=== PATIENT | female | born 1950 | race Caucasian/White ===

== ENCOUNTER 2017-01-30 13:20 | Emergency (ER) | payer OTHER ==
[2017-01-30 13:38] VITALS: BP 121/74; PULSE 75; RESP 18; TEMP 99; O2SAT 94
--- NOTE | 2017-01-30 13:50 | EDPHY ---
H & P Stated Complaint: c/o lower back rad to rt hip/leg pain inc. over last 3 days Time Seen by Provider: 01/30/17 13:49 HPI/ROS: CHIEF COMPLAINT: Low back pain, right-sided sciatica HISTORY OF PRESENT ILLNESS: The patient has a history of chronic low back pain. She reports that she has had increasing symptoms of right-sided sciatic pain over the past several days which were exacerbated by recent yard work. The patient denies any bowel or bladder dysfunction. The patient denies acute weakness. The patient denies prior history of back surgery. The patient has taken some ibuprofen over the past day with some improvement of her symptoms. The patient denies any history of fever or IV drug use. The patient denies any history of malignancy. The patient reports her pain is moderate in nature. It is worsened with axial rotation and palpation. The patient denies any rash, fever or additional complaints. REVIEW OF SYSTEMS: A comprehensive 10 point review of systems is otherwise negative aside from elements mentioned in the history of present illness. Source: Patient - Personal History Current Tetanus Diphtheria and Acellular Pertussis (TDAP): Yes - Medical/Surgical History Other PMH: ortho/hyst/appy - Social History Smoking Status: Former smoker - Physical Exam Exam: General Appearance: Obese female, no acute distress Eyes: Pupils equal and round no pallor or injection ENT, Mouth: Mucous membranes moist Respiratory: There are no retractions, lungs are clear to auscultation Cardiovascular: Regular rate and rhythm Gastrointestinal: Abdomen is soft and nontender, no masses, bowel sounds normal Neurological: 5/5 strength noted bilateral lower extremities, no evidence of clonus, 1+ reflexes bilaterally. Skin: Warm and dry, no rashes Musculoskeletal: Tenderness to palpation throughout the right paraspinal muscles in the lumbar spine, no midline tenderness, no sacroiliac tenderness Extremities: symmetrical, full range of motion Constitutional: Initial Vital Signs Temperature (C) 37.2 C 01/30/17 13:35 Heart Rate 75 01/30/17 13:35 Respiratory Rate 18 01/30/17 13:35 Blood Pressure 121/74 H 01/30/17 13:35 O2 Sat (%) 94 01/30/17 13:35 O2 Delivery Mode Room Air Allergies/Adverse Reactions: No Known Allergies Allergy (Unverified 08/22/09 11:37) Home Medications: Medication Instructions Recorded None 08/22/09 methylPREDNISolone [Medrol Dose 1 each PO AD #1 ea 01/30/17 Mc] oxyCODONE IR [Oxycodone Ir (*)] 5 mg PO Q6 PRN #12 tab 01/30/17 Medical Decision Making ED Course/Re-evaluation: The patient presents to the ED with an acute exacerbation of chronic low back pain with additional symptoms of right-sided sciatic pain. The patient is noted to be neurologically intact in the emergency department without obvious weakness or sensory loss. The patient has been informed of the possibility of mild lumbar radiculopathy is an etiology of her symptoms. The patient will be started on a oral steroid. She is advised to use NSAIDs and will be provided a prescription for narcotic pain medications to use as needed. The patient will be discharged home with customary aftercare instructions and return precautions. I would like the patient to follow up with our technical documentation specialist for any ongoing symptoms. She is advised to return to the ED for any acute weakness, numbness, bowel or bladder dysfunction, fever or other concerns. Differential Diagnosis: Differential diagnosis considered includes sciatica, sacroiliitis, lumbar disc herniation, cauda equina syndrome, zoster Departure - Departure Disposition: Home, Routine, Self-Care Clinical Impression: Sciatica, Lumbar pain Condition: Good Instructions: Sciatica (ED) Additional Instructions: 1. Take Ibuprofen or Motrin 600 mg by mouth three times a day. 2. Please take steroids as directed for pain. 3. Oxycodone as needed for severe pain. 4. Please take all these medications on a full stomach. 5. Please return to the ED immediately for any numbness, weakness, inability to walk, fever or other concerns. 6. Please follow up with a spinal specialist you have been referred to for any unimproved symptoms. Referrals: Feroz Goodwin MD [Medical Doctor] - As per Instructions Nikko Nur DO [Medical Doctor] - As per Instructions Prescriptions: methylPREDNISolone [Medrol Dose Mc] 1 each PO AD #1 ea oxyCODONE IR [Oxycodone Ir (*)] 5 mg PO Q6 PRN #12 tab PRN Reason: for pain
== END 2017-01-30 14:23 | disposition home or self-care (01) ==
LOC: CED 13:20
DX: M54.41 Lumbago with sciatica, right side (principal); Z87.891 Personal history of nicotine dependence

== ENCOUNTER → 2017-05-17 | Outpatient (CLI) | payer OTHER | LOC: CIMAGING 11:40 | PROVIDERS: ATTEND Family Medicine | DX: Z01.811 Encounter for preprocedural respiratory examination (principal); J84.10 Pulmonary fibrosis, unspecified; F17.200 Nicotine dependence, unspecified, uncomplicated | CPT/HCPCS: 71020-PO ==

== ENCOUNTER 2017-05-25 06:10 | Inpatient (IN) | payer OTHER ==
[2017-05-25] MEDS ORDERED: ACETAMINOPHEN 500 MG TAB PO ONE (06:17)
[2017-05-25] MEDS ORDERED: ceFAZolin 2 GM/DEXTROSE 100 ML IV ONE (06:17)
[2017-05-25] MEDS ORDERED: GABAPENTIN 300 MG CAP PO ONE (06:17)
[2017-05-25] MEDS ORDERED: morphINE PF 5 MG/10 ML INJ IT ONE (06:17)
[2017-05-25] MEDS ORDERED: morphINE SR 15 MG TAB PO ONE (06:17)
[2017-05-25] MEDS ORDERED: BUPIVACAINE 0.25% 30 ML SDV ONE (06:43)
[2017-05-25] MEDS ORDERED: CHLORHEXIDINE GLUC HIBICLENS 118 ML BTL TP ONE (06:43)
[2017-05-25] MEDS ORDERED: BACITRACIN 50,000 UNITS/10 ML SYR IRR ONE (06:44)
[2017-05-25] MEDS ORDERED: CITRATE DEXTROSE SOLN 500 ML BAG ONE (06:44)
[2017-05-25] MEDS ORDERED: LR 1,000 ML IV ONE (06:52)
--- NOTE | 2017-05-25 06:54 | PDHPUP ---
History & Physical Update H&P update statement: This history and physical update is based on an assessment of the patient which was completed after admission or registration (within 24 hours), but prior to the surgery/procedure. H&P update: H&P reviewed & patient examined, no change in patient's condition since H&P completed (Consents have been signed and site marked. All questions answered.)
[2017-05-25] MEDS ORDERED: THROMBIN (BOVINE) 20,000 UNIT VIAL TP ONE (06:59)
[2017-05-25] MEDS ORDERED: PROPOFOL/EMULSION 500 MG/50 ML BOTTLE IV ONE ×2 (07:09→10:52)
[2017-05-25] MEDS ORDERED: REMIFENTANIL HCL 1 MG VIAL ONE ×2 (07:09→10:52)
[2017-05-25] MEDS ORDERED: PROPOFOL 200 MG/20 ML VIAL ONE (07:10)
[2017-05-25] MEDS ORDERED: fentaNYL 100 MCG/2 ML INJ ONE ×2 (07:10→13:19)
[2017-05-25] MEDS ORDERED: SUCCINYLCHOLINE CHLORIDE*ANESTHESIA ONLY*200 MG/10 ML SYR IVP ONE (07:15)
[2017-05-25] MEDS ORDERED: LIDOCAINE 2% 5 ML SDV ONE (07:16)
[2017-05-25] MEDS ORDERED: MIDAZOLAM 2 MG/2 ML VIAL ONE (07:33)
[2017-05-25] MEDS ORDERED: MIDAZOLAM 2 MG/2 ML VIAL IVP ONE (07:33)
--- NOTE | 2017-05-25 07:33 | PDANEPAE ---
ANE History of Present Illness 67 year old female for L5-S1 laminectomy with TLIF. ANE Past Medical History - Cardiovascular History Hx Hypertension: No Hx Arrhythmias: No Hx Chest Pain: No Hx Coronary Artery / Peripheral Vascular Disease: No Hx CHF / Valvular Disease: No Hx Palpitations: No - Pulmonary History Hx COPD: No Hx Asthma/Reactive Airway Disease: No Hx Recent Upper Respiratory Infection: No Hx Oxygen in Use at Home: No Hx Sleep Apnea: No Sleep Apnea Screening Result - Last Documented: Negative - Neurologic History Hx Cerebrovascular Accident: No Hx Seizures: No Hx Dementia: No Neurologic History Comment: current sciatic pain to right leg and occassionally goes to left leg - Endocrine History Hx Diabetes: No Hypothyroid: No Hyperthyroid: No Obesity: yes, moderate - Renal History Hx Renal Disorders: No Renal History Comment: hx of bladder infections none in 10 yrs - Liver History Hx Hepatic Disorders: No - Neurological & Psychiatric Hx Hx Neurological and Psychiatric Disorders: No Neurological / Psychiatric History Comment: anxious about surgery - Cancer History Hx Cancer: No - Congenital Disorder History Hx Congenital Disorders: No - GI History GERD: no Hx Gastrointestinal Disorders: Yes Gastrointestinal History Comment: constipation - Other Health History Other Health History: wears glasses. missing teeth, loose tooth in front - Chronic Pain History Chronic Pain: Yes (back pain) - Surgical History Prior Surgeries: emergent appy 1993 ANE Review of Systems Review of systems is: negative - Exercise capacity Exercise capacity: <4 METS METS (RN): 3 METS - Systems Neurological: Reports: paresthesia, weakness (sciatica down right leg. Also reporting numbness in right little finger) ANE Patient History - Allergies Allergies/Adverse Reactions: No Known Allergies Allergy (Verified 05/12/17 12:26) - Home Medications Home Medications: Hydrocodone/Acetaminophen [[place] 5/325 (*)] 1 - 2 tab PO Q4H PRN 05/11/17 [Last Taken 05/24/17 22:00] - NPO status NPO Status: no food or drink >8 hours NPO Since - Liquids (Date): 05/24/17 NPO Since - Liquids (Time): 23:30 NPO Since - Solids (Date): 05/24/17 NPO Since - Solids (Time): 19:00 - Anes Hx Anes Hx: no prior problems - Smoking Hx Smoking Status: Light smoker Marijuana use: No - Alcohol Use Alcohol Use: Rarely - Family Anes Hx Family Anes Hx: none Family Hx Anesthesia Complications: none ANE Labs/Vital Signs - Vital Signs Vital Signs: reviewed preoperatively; see RN documention for details Blood Pressure: 139/80 Heart Rate: 60 Respiratory Rate: 13 O2 Sat (%): 92 Height: 167.64 cm Weight: 104.326 kg ANE Physical Exam - Airway Neck exam: FROM Mallampati Score: Class 3 Mouth exam: poor dentition Mouth image: 1 - Missing or very loose 2 - Missing or very loose;. Teeth in very poor condition. - Pulmonary Pulmonary: no respiratory distress - Cardiovascular Cardiovascular: regular rate and rhythym - ASA Status ASA Status: II ANE Anesthesia Plan Anesthesia Plan: general endotracheal anesthesia Total IV Anesthesia: Yes
[2017-05-25] MEDS ORDERED: ONDANSETRON 4 MG/2 ML VIAL ONE (08:01)
[2017-05-25] MEDS ORDERED: DEXAMETHASONE 4 MG/ML VIAL ONE (08:01)
[2017-05-25] MEDS ORDERED: PHENYLEPHRINE HCL 100 MCG/ML SYR ONE ×2 (09:58→10:47)
[2017-05-25] MEDS ORDERED: epHEDrine SULFATE 10 MG/ML SYR ONE ×2 (10:25→10:56)
[2017-05-25] MEDS ORDERED: NALOXONE HCL 0.4 MG/ML INJ IVP PRN (11:05)
[2017-05-25] MEDS ORDERED: LR 500 ML IV PRN (11:05)
[2017-05-25] MEDS ORDERED: HYDROmorphONE/DILAUDID 1 MG/ML SYR IVP PRN (11:05)
[2017-05-25] MEDS ORDERED: OXYCODONE/APAP 5/325 TAB PO PRN (11:05)
[2017-05-25] MEDS ORDERED: ONDANSETRON 4 MG/2 ML VIAL IVP PRN ×2 (11:05→12:59)
[2017-05-25] MEDS ORDERED: HYDROmorphONE/DILAUDID 2 MG/ML INJ ONE (11:18)
[2017-05-25] MEDS ORDERED: PHENYLEPHRINE 10 MG/ML SDV ONE (11:52)
[2017-05-25] MEDS ORDERED: SUGAMMADEX SODIUM 200 MG/2 ML VIAL IVP ONE (12:27)
[2017-05-25] MEDS ORDERED: diphenhydrAMINE 25 MG CAP PO PRN (12:59)
[2017-05-25] MEDS ORDERED: MAGNESIUM HYDROXIDE 30 ML UDCUP PO PRN (12:59)
[2017-05-25] MEDS ORDERED: ONDANSETRON DISINTEGRATING 4 MG TAB PO PRN (12:59)
[2017-05-25] MEDS ORDERED: POLYETHYLENE GLYCOL 3350 17 GM PKT PO PRN (12:59)
[2017-05-25] MEDS ORDERED: LACTULOSE 20 GM/30 ML UDCUP PO PRN (12:59)
[2017-05-25] MEDS ORDERED: BISACODYL 10 MG SUPP PR PRN (12:59)
[2017-05-25] MEDS ORDERED: NS 1,000 ML IV SCH (13:00)
--- NOTE | 2017-05-25 13:05 | POSTOPPROG ---
Post Op Note Date of Operation: 05/25/17 Surgeon: Yokasta Jacobs Watermaster: Eliot Jacobs PA-C Anesthesiologist: Konstantin Anesthesia: GET(General Endotracheal) Pre-op Diagnosis: lumbar stenosis, spondylolisthesis Post-op Diagnosis: same Indication: leg pain and weakness Procedure: L5-S1 laminectomy with TLIF and posterior fusion, synovial cyst resection Findings: Nerve compression Inf/Abcess present in the surg proc area at time of surgery?: No Depth: Organ Space EBL: 100-500 Complications: none Drains: Ebrny Canales Specimen(s): none PA Addendum - Addendum .: POST OP PACU NOTE: S: Pt in bed in PACU, states right leg is still somewhat numb and painful O: AAOx3 NAD VSS MAEx4 Motor 5/5 BUE/BLE with exception of L quad 4+/5 +LT JPx1 Wolfe in A: 67 yo F s/p L5S1 laminectomy, TLIF, and posterior fusion P: PT/OT Brace when OOB Post op xrays pending TEDS, SCDs, lovenox POD#1 Pain management Call NS with any issues
--- NOTE | 2017-05-25 13:14 | POSTANESTH ---
Post Anesthetic Evaluation Cardiovascular Status: Normal, Stable, Similar to Pre-Op Cond Respiratory Status: Normal, Stable, Similar to Pre-op Cond. Level of Consciousness/Mental Status: Can Participate in Eval, Mildly Sleepy, Arousable Pain Control: Adequate, Prn Tx Ordered Nausea/Vomiting Control: Adequate, Prn Tx Ordered Complications Possibly Related to Anesthesia: None Noted
[2017-05-25] MEDS: fentaNYL 100 MCG/2 ML INJ IVP PRN ×2 (13:22→13:33)
--- NOTE | 2017-05-25 14:21 | GOP ---
[f rep st] OPERATIVE REPORT DATE OF OPERATION: 05/25/2017 SURGEON: Wolfgang Musa MD KIT ASSEMBLER: Yokasta Jacobs PA-C. ANESTHESIA: General. PREOPERATIVE DIAGNOSIS: 1. L5-S1 grade 1 spondylolisthesis with bilateral pars defects. 2. Large right-sided herniated nucleus pulposus with central stenosis. 3. Left-sided synovial cyst, L5-S1. 4. Treatment refractory to nonoperative intervention. 5. Lower extremity weakness. 6. Low back pain. POSTOPERATIVE DIAGNOSIS: 1. L5-S1 grade 1 spondylolisthesis with bilateral pars defects. 2. Large right-sided herniated nucleus pulposus with central stenosis. 3. Left-sided synovial cyst, L5-S1. 4. Treatment refractory to nonoperative intervention. 5. Lower extremity weakness. 6. Low back pain. PROCEDURE PERFORMED: 1. Posterior arthrodesis with approach to L5-S1. 2. Rondon laminectomy with bilateral medial facetectomies and foraminotomies, L5- S1. 3. Synovial cyst resection, left-sided L5-S1. 4. Right-sided L5-S1 diskectomy. 5. Posterolateral fusion with bilateral pedicle screw placement, at L5 and S1 from the [employer]Soda 4.75 Solera system. 6. Right-sided L5-S1 transforaminal lumbar interbody fusion with a 7 x 23 mm titanium polyetheretherketone elevate cage filled with morselized autograft and allograft. 7. Posterolateral fusion on the left between L5 and S1 with morselized autograft and allograft. 8. Injection of preservative-free intrathecal narcotics. 9. Use of intraoperative 3D Stealth navigation. 10. Use of intraoperative fluoroscopy, less than 1 hour physician time. 11. Use of neuromonitoring. 12. Use of operating microscope. FINDINGS: per imaging SPECIMENS: None. ESTIMATED BLOOD LOSS: 150 mL. INDICATIONS: The patient is a 67-year-old woman, who presented to my office with acute onset of low back pain with right lower extremity radiculopathy. The patient had evidence of a large disk herniation at L5-S1. Patient failed nonoperative intervention. She also has a pars defect with a spondylolisthesis , L5-S1. After failing nonoperative interventions, after discussion of risks, benefits, and treatment alternatives, we decided to proceed forth with surgery as described above. DESCRIPTION OF PROCEDURE: Patient was brought to the operating theater, and underwent general endotracheal anesthesia without complications. She had knee- high LIMA hose and the appropriate lines placed by Anesthesia. She was then flipped prone onto the Berny table. All bony processes inspected and padded. The lower lumbar region was prepped and draped in usual sterile surgical fashion. After a time-out was completed per protocol, the patient received antibiotics within 1 hour of incision. Using lateral fluoroscopy and a spinal needle, we picked our entry point to the L5-S1 levels. This was marked in the midline and the incision then infiltrated with Marcaine with epinephrine. The incision was taken with the use of scalpel blade, and using monopolar taken down the midline to the lumbodorsal fascia. A subperiosteal dissection carried out to the transverse process of L5 and S1. Care was taken to preserve the L4-5 facet joint. The dissection was somewhat tedious secondary to the patient's body habitus. Deep retractors were placed to maintain our exposure. We attached the 3D Stealth navigation clamp to the spinous process of L4 and completed a 3D Stealth navigation spin. Using 3D Stealth navigation, we placed the line pilot holes for the bilateral pedicle screws into L5 and S1. All holes were manually palpated with no evidence of any cortical breaches. We then tapped and placed 6.5 x 50 mm screws bilaterally at L5, and 6.5 x 40 mm screws bilaterally at S1 from the [employer]onic 4.75 Solera system. Another 3D Stealth navigation spin demonstrated good placement of the hardware. At this point, the microscope was brought into the field to assist with microscopic dissection and to maintain illumination and magnification. Using a combination of the bur tip on the drill, Kerrison punches, and Leksell rongeur, we completed a decompressive Rondon laminectomy at L5-S1. We also resected the synovial cyst on the left side at the L5-S1 facet joint. We moved down and distracted the L5-S1 interspace, and resected the remainder of the pars on the right side. We completed a right-sided L5-S1 diskectomy, and prepared the cartilaginous endplates. We measured the interbody space and placed a 7 x 23 mm titanium PEEK elevate cage filled with morselized autograft and allograft anteriorly toward the midline. We packed additional morcellized autograft in the disk space for the interbody fusion and let down the distraction. At this point, we moved down along the medial aspect of the pedicle on the right side, and retracted the thecal sac medially, at which point, we pulled out very large free fragments of disk material until everything felt well decompressed on manual palpation. We decorticated the bone on the left side between L5 and S1. We placed 2 lordotic rods into the heads of the screws between L5 and S1, and secured them down with cap screws which were tightened per diamond sizer's setting. We irrigated the wound copiously with bacitracin irrigation and placed morselized autograft and allograft on the left side between L5-S1 for the postoperative fusion. We injected preservative-free intrathecal narcotics, and left a drain in the subfascial space. The wound was then closed in multiple layers using Vicryl sutures for deep layers and Dermabond for the skin. The patient's wounds were dressed sterilely. She was flipped supine onto the transfer cart. She was awakened, extubated, taken to the recovery room in stable condition. There were no complications, and no noted changes on neuromonitoring throughout the procedure. COMPLICATIONS: None. /[id number]/MODL MTDD
[2017-05-25] MEDS: ACETAMINOPHEN 500 MG TAB PO SCH ×2 (16:31→22:28)
[2017-05-25] MEDS: ceFAZolin 2 GM/DEXTROSE 100 ML IV SCH ×2 (17:39→22:31)
[2017-05-25] MEDS: POLYETHYLENE GLYCOL 3350 17 GM PKT PO SCH ×2 (18:49→22:29)
[2017-05-25] MEDS: SENNOSIDES/DOCUSATE SODIUM TAB PO SCH (22:28)
[2017-05-25] MEDS: FAMOTIDINE 20 MG TAB PO SCH (22:29)
[2017-05-26] MEDS: HYDROCODONE/APAP 5/325 TAB PO PRN ×5 (03:42→23:19)
[2017-05-26] MEDS: METHOCARBAMOL 750 MG TAB PO PRN ×3 (06:03→23:24)
[2017-05-26] MEDS: ACETAMINOPHEN 500 MG TAB PO SCH ×2 (06:03→14:25)
[2017-05-26] MEDS: ENOXAPARIN 40 MG/0.4 ML SYR SC SCH (07:43)
[2017-05-26] MEDS: SENNOSIDES/DOCUSATE SODIUM TAB PO SCH ×2 (07:47→21:11)
[2017-05-26] MEDS: POLYETHYLENE GLYCOL 3350 17 GM PKT PO SCH ×3 (07:48→21:11)
[2017-05-26] MEDS: FAMOTIDINE 20 MG TAB PO SCH ×2 (07:48→21:12)
--- NOTE | 2017-05-26 10:27 | NEUSURGPN ---
Assessment/Plan: A: 67 yo F s/p L5S1 laminectomy, TLIF, and posterior fusion POD#1 P: PT/OT Brace when OOB Post op xrays pending TEDS, SCDs, lovenox POD#1 Pain management - continue current regimen SHIVA drain productive - leave in place Call NS with any issues D/w Dr Musa Will need SNF placement post op Subjective: Pt resting in bed, states post op pain is well managed. Eager to get up and OOB. Objective: AAOx3 NAD VSS MAEx4 Motor 5/5 BLE with exception of L Quad 5-/5 +LT SHIVA drain with serosanguineous dc in bulb Urinary Catheter in Place: Yes Urinary Catheter Indication: Other (Use Comment) (to be removed today) - Physician Discussed Patient with Dr.: Musa Neurosurgery Physical Exam - Vitals, I&O, Labs I and O 05/25/17 05/26/17 05/27/17 05:59 05:59 05:59 Intake Total 1410 Output Total 2120 80 Balance -710 -80 Weight 104.326 kg Intake: Oral (ml) 310 IV Intake (ml) 1100 Output: Urine (ml) 1675 Catheter 1675 Estimated Blood Loss (ml) 150 SHIVA Drain Output (ml) 295 80 Back 295 80 Other: Intake Quantity Yes Sufficient Number of Voids Catheter 1 Vital Signs Temp Pulse Resp BP Pulse Ox 36.9 C 58 L 16 107/54 L 94 05/26/17 08:00 05/26/17 08:00 05/26/17 08:00 05/26/17 08:00 05/26/17 08:00 ICD10 Worksheet Patient Problems: Problems Problem Status Onset Spondylolisthesis, lumbar region Acute - ICD10 Problem Qualifiers (1) Spondylolisthesis, lumbar region
[2017-05-26] MEDS ORDERED: ACETAMINOPHEN 325 MG TAB PO PRN (14:09)
--- NOTE | 2017-05-26 15:57 | ASMTCASEMG ---
Discharge Plan Comments Coordination Status Comments Notes: PT/OT rec SNF. Pt [facility] is pursuing [employer] ins auth for weekend d/c. If no auth, pt will be here through wknd; this was communicated to pt. Date Signed: 05/26/2017 03:57 PM Electronically Signed By:Milla Evangelista
[2017-05-27] MEDS: ENOXAPARIN 40 MG/0.4 ML SYR SC SCH (07:56)
[2017-05-27] MEDS: SENNOSIDES/DOCUSATE SODIUM TAB PO SCH ×2 (07:57→21:37)
[2017-05-27] MEDS: METHOCARBAMOL 750 MG TAB PO PRN ×2 (07:57→12:44)
[2017-05-27] MEDS: FAMOTIDINE 20 MG TAB PO SCH ×2 (07:57→21:38)
[2017-05-27] MEDS: POLYETHYLENE GLYCOL 3350 17 GM PKT PO SCH ×3 (07:58→21:38)
[2017-05-27] MEDS: HYDROCODONE/APAP 5/325 TAB PO PRN ×3 (08:03→21:37)
--- NOTE | 2017-05-27 11:20 | ASMTCMCOM ---
CM Note CM Note Notes: [facility] Pt can d/c over the wknd if medically stable. Date Signed: 05/27/2017 11:19 AM Electronically Signed By:Milla Evangelista
--- NOTE | 2017-05-27 12:50 | SOAPPROG ---
SOIRIS Progress Note Assessment/Plan: Assessment: Doing well postop. 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 I think she needs to stay in the hospital another day or so to ensure that she recovers well. Plan: 05/27/17 12:49 Subjective: She is doing great and really has no pain. Objective: Vital Signs Temp Pulse Resp BP Pulse Ox 36.9 C 58 L 18 131/71 H 95 05/27/17 07:42 05/27/17 07:42 05/27/17 07:42 05/27/17 07:42 05/27/17 07:42 05/26/17 05/27/17 05/28/17 05:59 05:59 05:59 Intake Total 1410 1100 Output Total 2120 1290 700 Balance -710 -190 -700 MAEW. DRESSING LOOKS GOOD ICD10 Worksheet Patient Problems: Problems Problem Status Onset Spondylolisthesis, lumbar region Acute
[2017-05-28] MEDS: METHOCARBAMOL 750 MG TAB PO PRN ×3 (00:44→18:39)
[2017-05-28] MEDS: HYDROCODONE/APAP 5/325 TAB PO PRN ×2 (05:23→15:07)
[2017-05-28] MEDS: FAMOTIDINE 20 MG TAB PO SCH ×2 (08:04→21:43)
[2017-05-28] MEDS: SENNOSIDES/DOCUSATE SODIUM TAB PO SCH ×2 (08:04→21:43)
[2017-05-28] MEDS: POLYETHYLENE GLYCOL 3350 17 GM PKT PO SCH ×3 (08:05→21:43)
[2017-05-28] MEDS: ENOXAPARIN 40 MG/0.4 ML SYR SC SCH (08:05)
--- NOTE | 2017-05-28 12:04 | SOAPPROG ---
SOAP Progress Note Assessment/Plan: Assessment: Doing well postop. 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 I think she needs to stay in the hospital another day or so to ensure that she recovers well. drain removed today. xrays look great. Plan: 05/27/17 12:49 05/28/17 12:04 Subjective: Doing relatively well. Has some right leg pain today but in great spirits. Objective: Vital Signs Temp Pulse Resp BP Pulse Ox 37.0 C 54 L 16 114/72 93 05/28/17 08:00 05/28/17 08:00 05/28/17 08:00 05/28/17 08:00 05/28/17 08:00 05/27/17 05/28/17 05/29/17 05:59 05:59 05:59 Intake Total 1100 960 Output Total 1290 2250 20 Balance -190 -1290 -20 maew ICD10 Worksheet Patient Problems: Problems Problem Status Onset Spondylolisthesis, lumbar region Acute
--- NOTE | 2017-05-28 16:39 | ASMTCMCOM ---
CM Note CM Note Notes: Pt will arcenio DC to [facility] tomorrow. Updated [facility]. Date Signed: 05/28/2017 04:38 PM Electronically Signed By:Amebr Lind
[2017-05-29] MEDS: HYDROCODONE/APAP 5/325 TAB PO PRN ×4 (00:08→21:12)
[2017-05-29] MEDS: METHOCARBAMOL 750 MG TAB PO PRN ×4 (00:09→21:17)
[2017-05-29] MEDS: SENNOSIDES/DOCUSATE SODIUM TAB PO SCH ×2 (08:23→21:13)
[2017-05-29] MEDS: ENOXAPARIN 40 MG/0.4 ML SYR SC SCH (08:23)
[2017-05-29] MEDS: FAMOTIDINE 20 MG TAB PO SCH ×2 (08:23→21:13)
[2017-05-29] MEDS: POLYETHYLENE GLYCOL 3350 17 GM PKT PO SCH ×3 (08:24→21:13)
--- NOTE | 2017-05-29 10:26 | SOAPPROG ---
WINNIE Progress Note Assessment/Plan: Assessment: Doing well postop. 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 I think she needs to stay in the hospital another day or so to ensure that she recovers well. She will continue working with therapies today. Will consider discharge tomorrow. She may need a short stay in a SNF or rehab facility. Plan: 05/27/17 12:49 05/28/17 12:04 05/29/17 10:25 Subjective: Sitting in a chair. Generally good spirits but some pain down the back of the right leg last night. Objective: Vital Signs Temp Pulse Resp BP Pulse Ox 36.7 C 66 18 116/67 90 L 05/29/17 08:00 05/29/17 08:00 05/29/17 08:00 05/29/17 08:00 05/29/17 08:00 05/28/17 05/29/17 05/30/17 05:59 05:59 05:59 Intake Total 960 450 Output Total 2250 371 Balance -1290 79 maew ICD10 Worksheet Patient Problems: Problems Problem Status Onset Spondylolisthesis, lumbar region Acute
--- NOTE | 2017-05-29 16:38 | ASMTCMCOM ---
CM Note CM Note Notes: Neurosurgery reporting that patient discharge will be Monday. Date Signed: 05/29/2017 04:38 PM Electronically Signed By:Ashlee Daniel
[2017-05-30 01:14] VITALS: RESP 16
[2017-05-30] MEDS: HYDROCODONE/APAP 5/325 TAB PO PRN ×4 (03:09→16:50)
[2017-05-30] MEDS: METHOCARBAMOL 750 MG TAB PO PRN ×3 (03:10→16:51)
[2017-05-30] MEDS: ENOXAPARIN 40 MG/0.4 ML SYR SC SCH (07:37)
[2017-05-30] MEDS: FAMOTIDINE 20 MG TAB PO SCH (07:38)
[2017-05-30] MEDS: SENNOSIDES/DOCUSATE SODIUM TAB PO SCH (07:39)
[2017-05-30] MEDS: POLYETHYLENE GLYCOL 3350 17 GM PKT PO SCH ×2 (07:39→16:08)
[2017-05-30 08:27] VITALS: BP 95/64; PULSE 54; TEMP 97.7; O2SAT 93
--- NOTE | 2017-05-30 08:43 | NEUSURGPN ---
Assessment/Plan: A: 67 yo F s/p L5S1 laminectomy, TLIF, and posterior fusion P: PT/OT Brace when OOB Post op xrays with intact hardware TEDS, SCDs, lovenox Pain management - will start gabapentin today Call NS with any issues D/w Dr Musa SNF placement for later today Subjective: right leg nerve pain when standing. left leg improved. Objective: NAD A&Ox3 MAex4 RLE 4-/5 in IL/ham/quads (limited to pain) LLE 5-/5 throughout. Incision c/d/i - Physician Discussed Patient with : [facility] Neurosurgery Physical Exam - Vitals, I&O, Labs I and O 05/29/17 05/30/17 05/31/17 05:59 05:59 05:59 Intake Total 450 Output Total 371 1250 Balance 79 -1250 Intake: Oral (ml) 450 Output: Urine (ml) 351 1250 Bedside Commode 350 1250 Incontinence 1 SHIVA Drain Output (ml) 20 Back 20 Other: Intake Quantity Yes Sufficient Number of Voids Bedside Commode 1 1 Incontinence 2 Number of Stools Bedside Commode 1 Incontinence 1 Vital Signs Temp Pulse Resp BP Pulse Ox 36.5 C 54 L 16 95/64 L 93 05/30/17 08:00 05/30/17 08:00 05/30/17 08:00 05/30/17 08:00 05/30/17 08:00 ICD10 Worksheet Patient Problems: Problems Problem Status Onset Spondylolisthesis, lumbar region Acute
[2017-05-30] MEDS ORDERED: GABAPENTIN 300 MG CAP PO SCH (09:00)
[2017-05-30] MEDS ORDERED: GABAPENTIN 100 MG CAP PO SCH (09:00)
--- NOTE | 2017-05-30 09:36 | PDIAF ---
- Diagnosis Code Status: Full Code - Medication Management Discharge Medications: Medications to Continue on Transfer Hydrocodone/Acetaminophen [[place] 5/325 (*)] 1 - 2 tab PO Q4H PRN 05/11/17 [Last Taken 05/24/17 22:00] Acetaminophen [Tylenol 325mg (*)] 650 mg PO Q6H PRN #0 tab 05/30/17 [Last Taken Unknown] Gabapentin [Neurontin 100 MG (*)] 200 mg PO BID #0 cap 05/30/17 [Last Taken Unknown] Methocarbamol [Robaxin 750 mg (*)] 750 mg PO QID PRN #0 tab 05/30/17 [Last Taken Unknown] Sennosides/Docusate Sodium [Senokot-S] 1 - 2 tab PO BID #0 tab 05/30/17 [Last Taken Unknown] Discharge Medications: Refer to the Discharge Home Medication list for PRN reason. - Orders Services needed: Certified Tobacco Sampler, Physical Therapy, Occupational Therapy Diet Recommendation: no restrictions on diet Diet Texture: Regular Texture Diet Additional: No NSAIDs for 6 months. Keep incision covered with dry gauze. Okay to let water rinse over incision in shower. Do not soak. Okay to titrate up gabapentin (Started on 05/30 at 200mg bid, would continue for 2 additional days at this dose then okay to increase to 200mg tid). Ice to incision bid, 20 minutes each session. Wear LSO brace when OOB. Follow up with Dr. Musa's office in 2 weeks - Follow Up Care Current Providers and Referrals: Bang Mahan MD [Primary Care Provider] -
--- NOTE | 2017-05-31 09:20 | ASMTCMCOM ---
CM Note CM Note Notes: Pt medically stable for d/c to [facility]. Date Signed: 05/31/2017 09:20 AM Electronically Signed By:Milla Evangelista
== END 2017-05-30 17:04 | DRG 460 ==
LOC: F3N 06:10
PROVIDERS: ADMIT Neurological Surgery; ATTEND Neurological Surgery
DX: M43.17 Spondylolisthesis, lumbosacral region (principal); M51.27 Other intervertebral disc displacement, lumbosacral region; M48.07 Spinal stenosis, lumbosacral region; M71.38 Other bursal cyst, other site
CPT/HCPCS: 97116-GP; 97161-GP; 97165-GO; 97530-GO; 97530-GP; 97535-GO; C1713; G8978-GP-CK; G8979-GP-CI; G8987-GO-CK; G8988-GO-CI; J0171; J0330; J0690; J1100; J1170; J1650; J2250; J2274; J2370; J2405; J2704; J3010; J7060

== ENCOUNTER 2018-01-31 09:15 | Emergency (ER) | payer OTHER ==
--- NOTE | 2018-01-31 09:38 | EDPHY ---
H & P Time Seen by Provider: 01/31/18 09:27 HPI/ROS: HPI Left ankle injury. 68-year-old female by private vehicle. This patient reports that she was walking down her stairs backwards about 2 weeks ago. She misstepped on the last step and twisted her left ankle. She presents to the emergency department with complaint of left ankle pain. Worse with weight-bearing. She has been using a walker to ambulate. She denies any other injury or complaint related to this event. ROS: Constitutional: No fever, no chills. No weakness. Musculoskeletal: Chronic back pain. No neck pain. As above. Denies other extremity pain. Skin: No rashes. No lacerations or abrasions. Neurological: No headache. No focal weakness or altered sensation. Past medical history: Sciatica, orthopedic, appendectomy, hysterectomy. Social history: Former smoker. Here by herself. Physical Exam: General Appearance: Alert, no distress. This patient is responding to questions appropriately and in full sentences. This patient appears well- hydrated and well-nourished. Eyes: Pupils equal and round no pallor or injection. No lid edema, erythema or injection. Left ankle and left lower extremity exam: Vague tenderness around the medial malleolus of the left ankle. No bony step-off, deformity, ecchymosis, warmth noted. She does have increased asymmetrical edema involving the left ankle and foot relative to the right lower extremity. She also has some tenderness on palpation of the posterior aspect of the left calcaneus. No deformity or ecchymosis noted over this area. No calf tenderness on palpation of the left calf musculature. No palpable cords. The left lower extremity is neurovascularly intact. Neurological: Motor sensory function is grossly intact. Cranial nerves are normal. Skin: Warm and dry, no rashes. Musculoskeletal: Neck is supple and nontender. Extremities are symmetrical. All joints range without pain or impingement. Psychiatric: No agitation. No depression. Database: EKG: Imaging: Left lower extremity ultrasound: Negative for DVT. Results were discussed with staff radiologist Dr. Zenon Daly. Left foot and ankle x-ray series: Negative for fracture, subluxation, dislocation. Interpreted by me. Procedures: Emergency department course: Vital signs reviewed and are unremarkable. Patient's presentation is consistent with a left ankle sprain. However, she does have some asymmetric edema in the left lower extremity/ankle/foot and we will evaluate her for DVT with ultrasound. 10:30 a.m., left ankle and foot placed in a rigid orthopedic boot. Results of x -rays and ultrasound discussed with patient. Patient can weightbear partially an as tolerated on her left ankle and foot while using her walker. Plan will be to discharge to home with follow up with her primary care physician. I will also give her an orthopedic referral should she choose to see a specialist. Return to emergency department precautions have been discussed with her. All of her questions were answered. She was discharged from the emergency department in good condition. Differential Diagnosis: The differential diagnosis on this patient includes but is not limited to left ankle sprain. Left ankle fracture, subluxation, dislocation, DVT of the left lower extremity unlikely. This represents a partial list of diagnoses considered. These considerations are based on history, physical exam, past history, reassessment and diagnostic testing. Smoking Status: Light smoker Constitutional: Initial Vital Signs Temperature (C) 37.2 C 01/31/18 09:27 Heart Rate 59 L 01/31/18 09:27 Respiratory Rate 18 01/31/18 09:27 Blood Pressure 138/81 H 01/31/18 09:27 O2 Sat (%) 95 01/31/18 09:27 O2 Delivery Mode Room Air Allergies/Adverse Reactions: No Known Allergies Allergy (Verified 01/31/18 09:26) Home Medications: Medication Instructions Recorded NK [No Known Home Meds] 01/31/18 Medical Decision Making - Diagnostics Imaging Results: Imaging Impressions Extremity Venous Study 01/31/18 09:31 Impression: No deep venous thrombosis left leg. Departure - Departure Disposition: Home, Routine, Self-Care Clinical Impression: Left ankle sprain Condition: Good Instructions: Ankle Sprain (ED) Additional Instructions: Read and follow provided instructions. Follow-up with your primary care physician in 2-3 days for re-evaluation. Your primary care physician can refer you to an labeling specialist as needed. I have also provided you a referral to an labeling specialist. Ibuprofen dosin mg every 6 hours with meals for the next 3 days only. Take only as needed for pain. Weight-bearing to the left ankle as tolerated. Return to the emergency department for worsening pain, discoloration, loss of sensation, swelling or other serious concerns. Referrals: Bang Mahan MD [Primary Care Provider] - As per Instructions Nikko Fox MD [Medical Doctor] - As per Instructions
[2018-01-31 10:52] VITALS: BP 129/79
== END 2018-01-31 10:49 | disposition home or self-care (01) ==
LOC: CED 09:15
DX: S93.402A Sprain of unspecified ligament of left ankle, initial encounter (principal); Z87.891 Personal history of nicotine dependence; X58.XXXA Exposure to other specified factors, initial encounter; Y99.8 Other external cause status; Y93.01 Activity, walking, marching and hiking
CPT/HCPCS: 73610; 73620; 93971; 99284; L4386

== ENCOUNTER → 2018-06-09 | Outpatient (CLI) | payer OTHER | LOC: FIMAGING 09:49 | PROVIDERS: ATTEND Physician Assistant Medical | DX: M25.551 Pain in right hip (principal) ==

== ENCOUNTER → 2018-07-17 | Outpatient (CLI) | payer OTHER ==
[~2018-07-17] MED LIST: LIDOCAINE 1% 300 MG/30 ML SDV ONE
== END ==
LOC: FIMAGING 11:52
PROVIDERS: ATTEND Orthopaedic Surgery
PROC: 0S9C3ZZ Drainage of Right Knee Joint, Percutaneous Approach (ICD-10-PCS; principal; 2018-07-17)
DX: L08.9 Local infection of the skin and subcutaneous tissue, unspecified (principal); M24.851 Other specific joint derangements of right hip, not elsewhere classified

== ENCOUNTER → 2018-10-01 | Outpatient (CLI) | payer OTHER | LOC: FIMAGING 09:37 | PROVIDERS: ATTEND Orthopaedic Surgery | DX: M87.851 Other osteonecrosis, right femur (principal); M01.X51 Direct infection of right hip in infectious and parasitic diseases classified elsewhere | CPT/HCPCS: 78315; 78805; A9503; A9570 ==